=== PATIENT | female | born 1950 | race American Indian/Alaskan Native ===

== ENCOUNTER 2019-07-20 02:54 | Emergency (ER) | payer MEDICARE ==
--- NOTE | 2019-07-20 03:48 | XRay Report ---
CHEST 1 VIEW 07/20/2019 3:43 AM INDICATION / CLINICAL INFORMATION: Chest Pain. COMPARISON: None available. FINDINGS: SUPPORT DEVICES: None. HEART / MEDIASTINUM: No significant abnormality. LUNGS / PLEURA: No significant pulmonary or pleural abnormality. No pneumothorax. ADDITIONAL FINDINGS: No significant additional findings. IMPRESSION: 1. No acute findings. Signer Name: Ruddy Garcia MD Signed: 07/20/2019 3:44 AM Workstation Name: [email or web address]
[2019-07-20 03:53] LABS: Basophils # (Auto) 0.1 K/mm3 (0.0-0.1); Basophils % (Auto) 0.6 % (0.0-1.8); Eosinophils % (Auto) 0.4 % (0.0-4.3); Hemoglobin 14.1 gm/dl (10.1-14.3); Lymphocytes # (Auto) 1.8 K/mm3 (1.2-5.4); Lymphocytes % (Auto) 21.6 % (13.4-35.0); Mean Corpuscular HGB Conc 34 % (30-34); Mean Corpuscular Volume 95 fl (79-97); Monocytes # (Auto) 0.5 K/mm3 (0.0-0.8); Monocytes % (Auto) 6.2 % (0.0-7.3); Platelet Count 222 K/mm3 (140-440); Red Blood Count 4.43 M/mm3 (3.65-5.03); Red Cell Distribution Width 14.1 % (13.2-15.2)
[2019-07-20 04:06] LABS: BUN/Creatinine Ratio 16; Blood Urea Nitrogen 13 mg/dL (7-17); Calcium 9.3 mg/dL (8.4-10.2); Hemolysis Index 5
--- NOTE | 2019-07-20 04:10 | Emergency Department Report ---
ED Palpitations HPI - General Chief Complaint: Arrhythmia/Palpitations Stated Complaint: RACING HB, Time Seen by Provider: 07/20/19 04:05 Source: patient Mode of arrival: Ambulatory Limitations: No Limitations - History of Present Illness Initial Comments: Patient is a 69-year-old female that presents emergency room with complaints of heart palpitation and racing heart. Patient states it started at midnight and resolved at 1 AM. Patient states that the symptoms only lasted 1 hour. Patient states the symptoms have not returned. Patient states she just wants to be checked out make sure everything is okay with her heart. Patient denies chest pain or shortness of breath. Patient denies fever and chills. Patient denies any other symptoms. Patient denies recent travel. Patient denies recent international travel. Patient denies exposure to the novel coronavirus. Patient denies sick contacts. Patient denies fever and chills. Patient denies cough. Patient denies diarrhea. Patient denies coming in contact with anybody with symptoms of the novel coronavirus. Complaint: "heart racing", palpitations -: Sudden Associated Symptoms: denies other symptoms - Related Data Home Medications Medication Instructions Recorded Confirmed Last Taken Triamter/Hctz 75-50 mg (Nf) 1 tab PO QDAY 06/15/13 05/25/14 05/24/14 [Maxzide 75-50 mg] Verapamil HCl [Verapamil ER] 240 mg PO BID 06/15/13 05/25/14 05/24/14 Allergies Allergy/AdvReac Type Severity Reaction Status Date / Time No Known Allergies Allergy Unverified 06/15/13 06:19 ED Review of Systems ROS: Stated complaint: RACING HB, Other details as noted in HPI Constitutional: denies: chills, fever Eyes: denies: eye pain, eye discharge, vision change ENT: denies: ear pain, throat pain Respiratory: denies: cough, shortness of breath, wheezing Cardiovascular: palpitations. denies: chest pain Endocrine: no symptoms reported Gastrointestinal: denies: abdominal pain, nausea, diarrhea Genitourinary: denies: urgency, dysuria, discharge Musculoskeletal: denies: back pain, joint swelling, arthralgia Skin: denies: rash, lesions Neurological: denies: headache, weakness, paresthesias Psychiatric: denies: anxiety, depression Hematological/Lymphatic: denies: easy bleeding, easy bruising ED Past Medical Hx - Past Medical History Previous Medical History?: Yes Hx Hypertension: Yes Hx of Cancer: Yes (Breast) Additional medical history: Anxiety - Surgical History Past Surgical History?: No - Social History Smoking Status: Never Smoker Substance Use Type: None - Medications Home Medications: Home Medications Medication Instructions Recorded Confirmed Last Taken Type Triamter/Hctz 75-50 mg (Nf) 1 tab PO QDAY 06/15/13 05/25/14 05/24/14 History [Maxzide 75-50 mg] Verapamil HCl [Verapamil ER] 240 mg PO BID 06/15/13 05/25/14 05/24/14 History ED Physical Exam - General Limitations: No Limitations General appearance: alert, in no apparent distress - Head Head exam: Present: atraumatic, normocephalic - Eye Eye exam: Present: normal appearance - ENT ENT exam: Present: mucous membranes moist - Neck Neck exam: Present: normal inspection - Respiratory Respiratory exam: Present: normal lung sounds bilaterally. Absent: respiratory distress - Cardiovascular Cardiovascular Exam: Present: regular rate, normal rhythm, normal heart sounds. Absent: bradycardia, tachycardia, irregular rhythm, systolic murmur, diastolic murmur, rubs, gallop - GI/Abdominal GI/Abdominal exam: Present: soft, normal bowel sounds - Extremities Exam Extremities exam: Present: normal inspection - Back Exam Back exam: Present: normal inspection - Neurological Exam Neurological exam: Present: alert, oriented X3 - Psychiatric Psychiatric exam: Present: normal affect, normal mood - Skin Skin exam: Present: warm, dry, intact, normal color. Absent: rash ED Course Vital Signs 07/20/19 02:59 Temperature 98.5 F Pulse Rate 96 H Respiratory 16 Rate Blood Pressure 170/90 O2 Sat by Pulse 98 Oximetry - Reevaluation(s) Reevaluation #1: Initial evaluation done. Patient was placed on director operations and we will monitor patient's heart rhythm and heart rate. 07/20/19 04:10 Reevaluation #2: Patient denies any symptoms. Patient denies chest pain. Patient denies palpitation. Patient states she is not had any problems since being in the ER. Patient's heart rate and vital signs are stable. I discussed all results and clinical findings with patient. I discussed plan of care with patient. Patient agrees with plan of care. Patient is stable for discharge. Patient will be discharged home. Patient given discharge instructions. Patient voiced understanding of discharge instructions. 07/20/19 05:27 ED Medical Decision Making - Lab Data Result diagrams: 07/20/19 03:32 07/20/19 03:32 - EKG Data -: EKG Interpreted by Me EKG shows normal: sinus rhythm, intervals, QRS complexes, ST-T waves Rate: normal - Radiology Data Radiology results: report reviewed, image reviewed CHEST 1 VIEW 07/20/2019 3:43 AM INDICATION / CLINICAL INFORMATION: Chest Pain. COMPARISON: None available. FINDINGS: SUPPORT DEVICES: None. HEART / MEDIASTINUM: No significant abnormality. LUNGS / PLEURA: No significant pulmonary or pleural abnormality. No pneumothorax. ADDITIONAL FINDINGS: No significant additional findings. IMPRESSION: 1. No acute findings. - Medical Decision Making Patient is a 69-year-old female that presents emergency room with complaints of racing heart and palpitations. Patient has been asymptomatic the entire time in the ER. Patient's heart rate and heart rhythm and vital signs were monitored for adequate amount of time. Patient denied have any palpitations or complaints while in the ER. Patient's labs are unremarkable. Patient chest x-ray is negative for acute findings. Patient's EKG shows a normal sinus rhythm with no acute findings or abnormalities on her EKG. Patient discharged home. Patient sent to follow-up with a emergency service restorer. - Differential Diagnosis Palpitations, racing heart. Electrolyte imbalance, dehydration. Critical care attestation.: If time is entered above; I have spent that time in minutes in the direct care of this critically ill patient, excluding procedure time. ED Disposition Clinical Impression: Palpitations Hypertension Qualifiers: Hypertension type: essential hypertension Qualified Code(s): I10 - Essential (primary) hypertension Disposition: -01 TO HOME OR SELFCARE Is pt being admited?: No Does the pt Need Aspirin: No Condition: Stable Instructions: Hypertension (ED), DASH Eating Plan (ED), Low Sodium Diet (ED), Heart Healthy Diet (ED), How to Take a Blood Pressure (ED), Palpitations (ED) Additional Instructions: Patient to follow-up with primary care in 2 to 3 days. Patient to follow-up with emergency service restorer in 2 to 3 days. Patient to rest. Patient to increase water. Patient to avoid strenuous exercise or heavy lifting until cleared by emergency service restorer. Patient to take Tylenol or ibuprofen as needed for pain. Patient to take meds as directed. Patient to return to the ER if condition worsens, changes or new symptoms arise. Patient to monitor blood pressure and heart rate at home. Patient to keep a heart rate and blood pressure log and taken to her follow-up appointments. Referrals: PRIMARY CAREMD [Primary Care Provider] - 2-3 Days TAMMY GOMES MD [Staff Physician] - 2-3 Days Time of Disposition: 05:33
[2019-07-20 05:38] VITALS: BP 162/92
== END 2019-07-20 06:51 | disposition home or self-care (01) ==
LOC: ED 02:54
DX: R00.2 Palpitations (principal); I10 Essential (primary) hypertension; F41.9 Anxiety disorder, unspecified
CPT/HCPCS: 36415; 71045; 80048; 84484; 85025; 93005; 93010